=== PATIENT | male | born 1965 | race Caucasian/White ===

== ENCOUNTER 2019-03-08 11:33 | Emergency (ER) | payer OTHER ==
[~2019-03-08] VITALS: Ht 177.8 cm; Wt 98.0 kg
[~2019-03-08 11:33] MED LIST: CYMBALTA60 MG; KETO10TA2 PO; ORPH100T PO
[2019-03-08] MEDS ORDERED: AZULFIDINE500 M1 (11:39)
[2019-03-08] MEDS ORDERED: CYMBALTA60 MG (11:39)
== END 2019-03-08 13:41 | disposition home or self-care (01) ==
LOC: ER 11:33
DX: M50.320 Other cervical disc degeneration, mid-cervical region, unspecified level (principal)

== ENCOUNTER 2019-08-29 11:33 | Emergency (ER) | payer OTHER ==
[~2019-08-29] VITALS: Ht 180.3 cm; Wt 99.8 kg
[~2019-08-29 11:33] MED LIST changes: +AZULFIDINE500 M1
[2019-08-29] MEDS ORDERED: LEVOTHYROXINE25 MCG PO (12:02)
== END 2019-08-29 18:40 | disposition home or self-care (01) ==
LOC: ER 11:33
DX: J09.X2 Influenza due to identified novel influenza A virus with other respiratory manifestations (principal)

== ENCOUNTER 2025-05-31 11:35 | Emergency (ER) | payer OTHER ==
[~2025-05-31] VITALS: Ht 180.3 cm; Wt 98.9 kg
[~2025-05-31 11:35] MED LIST changes: +LEVOTHYROXINE25 MCG PO
[2025-05-31] MEDS ORDERED: DULOXETINE HCL30 MG PO (12:19)
[2025-05-31] MEDS ORDERED: TRIAMCINOLONE ACETONIDE 40 MG/ML VIAL IM ONE (14:30)
[2025-05-31] MEDS ORDERED: KETOROLAC TROMETHAMINE 60 MG VIAL IM ONE ×2 (14:30→15:33)
[2025-05-31] MEDS ORDERED: TRIAMCINOLONE ACETONIDE 40 MG/ML VIAL ONE (15:33)
[2025-05-31] MEDS ORDERED: DICLOFENAC SODI50 MG PO (16:56)
== END 2025-05-31 17:16 | disposition home or self-care (01) ==
LOC: ER 11:36
DX: M77.11 Lateral epicondylitis, right elbow (principal); M25.521 Pain in right elbow; Z91.013 Allergy to seafood